=== PATIENT | female | born 1955 | race Caucasian/White ===

== ENCOUNTER 2024-02-01 05:47 | Day surgery (SDC) | payer MEDICARE, SELFPAY ==
[2024-02-01] VITALS (10 sets, daily range): BP systolic 122–147; BP diastolic 72–88; PULSE 67–107; RESP 16–17; TEMP 36.4–37.4; O2SAT 95–98; BMI 27.6
[2024-02-01] MEDS: Lactated Ringers 1,000 ML 15 ML IV (06:33)
--- NOTE | 2024-02-01 07:21 | PCM.HP.BLA ---
History and Physical Date of Admission: 02/01/24 The patient is examined and there are no changes to the H&P dated 01/10/24. She presents with dermatochalasis and impaired visual talamantes and therefore will undergo bilateral upper blepharoplasty. Assessment & Plan Assessment/Plan (1) Limited peripheral vision of both eyes: (2) Dermatochalasis of both eyelids: PLAN: Plan For bilateral upper blepharoplasty
[2024-02-01] MEDS: Cefazolin 2 GM in 0.9% Normal Saline (100mL Bag) 100 ML IV (07:28)
[2024-02-01] MEDS: Lidocaine 1% /Epi 1:100 (20ml) 20 ML Vial (07:50)
[2024-02-01] MEDS: Epinephrine (1 mg/ml) 1 MG/ML VIAL (07:50)
[2024-02-01] MEDS: Povidone Iodine 30 ML Opthalmic Sol 1 DRP (07:50)
[2024-02-01] MEDS: Erythromycin Base 1 OPTH.TUBE 1 APPLIC (07:50)
[2024-02-01] MEDS: Tetracaine 0.5% Ophthalmic Bottle 1 DRP (07:50)
[2024-02-01] MEDS: EPINEPHrine Nasal 0.1% 30 ML Bottle OPERA.SITE (08:09)
--- NOTE | 2024-02-01 09:00 | EX.PCM.DISCH ---
Discharge Instructions Dressing / Incision Drain: Suction Additional Dressing/Incision Instructions:: Keep your head elevated (recliner position) at night. Maintain cool compresses today. Follow Up Care Please Follow Up With: Winsome Brown MD When: In 1 week Test Results: Test results from this visit will be discussed in further detail at your follow-up appointment, if applicable. Discharge Plan Admission Attending Provider: Winsome Brown Primary Care Provider: VAMSHI CAMACHO Discharge Orders/Prescriptions Prescriptions: No Action simvastatin 10 mg tablet 10 mg PO QPM trazodone 100 mg tablet 100 mg PO QHS Referrals / Follow Up: VAMSHI CAMACHO [Other] Disposition Disposition (needs filled in before D/C Order can be placed): Home, Self Care
--- NOTE | 2024-02-01 09:04 | OP.PCM_ITS ---
Problems Associated Problem List Diagnoses (1) Limited peripheral vision of both eyes: (2) Dermatochalasis of both eyelids: Report of Operation Date of Procedure: 02/01/24 Pre-Operative Diagnosis: Bilateral upper eyelid dermatochalasis, obstruction of visual field Post-Operative Diagnosis: Same Surgery/Procedure Performed:: Bilateral upper blepharoplasty for vision obstruction Surgeon: Winsome Brown Type of Anesthesia: General Estimated Blood Loss (mL): Minimal Description of Procedure: The patient presents today for bilateral upper blepharoplasty due to obstruction of visual talamantes. The procedure been thoroughly reviewed with the patient prior to surgery including an informed consent. The patient is marked in the preop holding area prior to surgery. The patient was brought to the operating room and placed under general anesthesia in the supine position. Care is taken to apply a warming blanket, pad all pressure points, and apply sequential compression stockings. The face is prepped and draped in usual sterile fashion. Corneal sequeira are placed bilaterally lubricated with ophthalmic antibiotic ointment. I initially began with injecting 1% Xylocaine with epinephrine along the proposed incision lines. Following this, the skin is brought out as a single layer from both upper eyelids. Meticulous hemostasis is controlled with bipolar cautery. A strip of orbicularis oculi is then removed and again hemostasis is achieved. Following this, the incision is tacked together with fast-absorbing gut suture. Cool compresses were placed on the eye and we directed our attention to the opposite side where an identical procedure was performed. Following this, all incisions are closed with a running subcuticular Prolene suture. Mastisol and Steri- Strips were used to anchor the suture at the temples and glabella. Erythromycin ophthalmic ointment is placed along the incision lines. Cool compresses are again replaced. She is placed in a semi-Fowlers position. She tolerated the procedure well was taken to the recovery area in an awakening in stable condition. Needle and sponge counts are correct. Complications None Admit VTE Documentation VTE Mechan Device Prophylaxis: SCD's
== END 2024-02-01 10:50 | disposition home or self-care (01) ==
LOC: SDC 05:49 → AC 05:50
PROVIDERS: Referring Provider Plastic Surgery; Visit Provider Plastic Surgery
PROC: (CPT 15822; principal; 2024-02-01 07:20)
DX: H02.831 Dermatochalasis of right upper eyelid (principal); H02.834 Dermatochalasis of left upper eyelid; H53.453 Other localized visual field defect, bilateral; E78.00 Pure hypercholesterolemia, unspecified; Z79.899 Other long term (current) drug therapy; Z87.891 Personal history of nicotine dependence
CPT/HCPCS: 15822; 00103; J7120; J2405

== ENCOUNTER → 2025-04-01 | Outpatient (CLI) | payer MEDICARE, SELFPAY ==
[2025-04-01 10:15] LABS: Absolute Lymphocyte Count 1.13 X10^3/uL (0.83-4.51); Absolute Neutrophil Count 2.8 X10^3/uL (2.0-7.7); Basophil# 0.03 X10^3/uL; Basophil% 0.7 % (0-1); Eosinophil# 0.22 X10^3/uL; Eosinophils% 4.8 % (0-5); Hemoglobin 13.1 g/dL (12.0-15.0); Lymphocyte # 1.13 X10^3/ul (0.83-4.51); Lymphocyte % 24.5 % (19-41); Mean Corpuscular Hgb 28.5 pg (27.0-32.0); Mean Corpuscular Volume 89.1 fL (81-99); Mean Platelet Vol. 9.4 fl (6.2-12.0); Monocyte# 0.42 X10^3/uL; Monocyte% 9.1 % (0-10); NRBC Flagged by Analyzer 0 % (0-5); Neutrophil % 60.7 % (47-70); Platelet Count 188 K/mm3 (150-450); RBC Distribution Width CV 13.6 % (11.6-14.6); RBC Distribution Width SD 44.4 fl (35.1-43.9); White Blood Count 4.6 K/mm3 (4.4-11.0)
[2025-04-01 11:40] LABS: ALB/GLOB Ratio 1.6 RATIO (0.9-2.4); AST(SGOT) 21 U/L (<=31); Alanine Aminotransfer ALT/SGPT 18 U/L (<=34); Albumin, Serum 4.2 g/dL (3.4-4.8); Alkaline Phosphatase 72 U/L (35-104); Anion Gap 10 (5-15); BUN 19 mg/dL (4-19); Calcium,Total 9.4 mg/dL (7.6-11.0); Carbon Dioxide 24.7 mmol/L (21.0-32.0); Chloride 108 mmol/L (98-108); Cholesterol 218 mg/dL (<=200); Creatinine, Serum 0.81 mg/dL (0.70-1.20); EST Glomerular Filtration Rate 78 (>60); Globulin 2.7 g/dL (2.2-4.2); Glucose 104 mg/dL (70-99); High Density Lipoprotein 74 mg/dL; Low Density Lipoprotein Calc. 126 mg/dL; Potassium 3.9 mmol/L (3.3-5.1); Protein, Total 6.9 g/dL (5.9-8.4); Sodium Level 143 mmol/L (133-145); Total Bilirubin 0.45 mg/dL (0.00-1.30); Triglycerides 91 mg/dL; Very Low Density Lipoprotein 18 mg/dL (5-40); cholesterol:hdl ratio screen 2.95
== END | disposition home or self-care (01) ==
PROVIDERS: PCP Family Medicine; Referring Provider Family Medicine; Visit Provider Family Medicine
DX: Z00.00 Encounter for general adult medical examination without abnormal findings (principal); E78.5 Hyperlipidemia, unspecified
CPT/HCPCS: 36415; 80053; 80061; 85025

== ENCOUNTER → 2025-05-26 | Outpatient (CLI) | payer MEDICARE, SELFPAY ==
--- NOTE | 2025-05-26 14:47 | BI_ITS ---
EXAM: SCRN MAMM (CAD)W/SAÚL BILAT DATE: 05/26/2025 CLINICAL HISTORY: F, Age 70 y/o , SCREENING TECHNIQUE: SCRN MAMM (CAD)W/SAÚL BILAT COMPARISON: None available FINDINGS: TISSUE DENSITY: The breasts are heterogeneously dense, which may obscure small masses. Bilateral Breast Mammographic Findings: No suspicious masses, calcifications or other abnormalities are identified. BI/SCRN MAMM (CAD)W/SAÚL BILAT IMPRESSION: No mammographic evidence of malignancy in either breast. OVERALL FINAL ASSESSMENT BI-RADS 1: NEGATIVE. RECOMMENDATION: Routine annual follow-up in 1 Year A letter with findings and recommendations will be mailed to the patient. Reading Location: [id number]
--- NOTE | 2025-05-26 14:52 | BD_ITS ---
PROCEDURE: DEXA BONE DENSITY STUDY 05/26/2025 REASON FOR EXAM: F, age 70 y/o . Postmenopausal. TECHNIQUE: DEXA BONE DENSITY STUDY COMPARISON: None FINDINGS: BMD and T-SCORES Lumbar spine: 0.821 g/cm2, T-score -2.1 Levels: L1 through L4 Left femoral neck: 0.668 g/cm2, T-score -1.6 Femoral neck comparison data not recommended for monitoring change. Left total hip: 0.817 g/cm2, T-score -1.0 Right femoral neck: 0.718 g/cm2, T-score -1.2 Femoral neck comparison data not recommended for monitoring change. Right total hip: 0.843 g/cm2, T-score -0.8 The World Health Organization has defined the following categories based on bone density: Normal bone density: T-score equal to or greater than -1.0 Osteopenia: T-score between -1.0 and -2.5 Osteoporosis: T-score equal to or less than -2.5 The patient does meet the pharmacological treatment recommendations for prevention of osteoporosis. BD/Dexa Bone Density Study IMPRESSION: OSTEOPENIA. Recommend follow-up as clinically warranted. Reading Location: [facility]
== END | disposition home or self-care (01) ==
LOC: OPBD 14:46
PROVIDERS: PCP Family Medicine; Referring Provider Family Medicine; Visit Provider Family Medicine
DX: Z12.31 Encounter for screening mammogram for malignant neoplasm of breast (principal); Z78.0 Asymptomatic menopausal state
CPT/HCPCS: 77063; 77067; 77080